=== PATIENT | female | born 1955 | race Caucasian/White ===

== ENCOUNTER 2020-03-23 07:20 | Outpatient (CLI) | payer OTHER, SELFPAY ==
--- NOTE | 2020-03-23 07:26 | MM_ITS ---
WS: [id number] BILATERAL SCREENING DIGITAL MAMMOGRAM WITH CAD HISTORY: SCREENING COMPARISON: 12/31/2018 and 12/18/2017 Bilateral CC and MLO views submitted. Computer aided detection analyzed. Breast composition: The breasts are heterogeneously dense, which may obscure small masses. No suspici ous masses, microcalcifications or architectural distortion. MM/[place] [id number] IMPRESSION: BI-RADS: 1-Negative FOLLOW UP: 1 Year Follow-up
== END 2020-03-23 07:21 | disposition home or self-care (01) ==
LOC: RADSHAW 07:24
PROVIDERS: PCP Family Medicine; Visit Provider Family Medicine
DX: Z12.31 Encounter for screening mammogram for malignant neoplasm of breast (principal)
CPT/HCPCS: 77067

== ENCOUNTER 2020-04-09 13:17 | Emergency (ER) | payer OTHER, SELFPAY ==
[2020-04-09 13:20] VITALS: BP 183/102; PULSE 95; RESP 17; TEMP 36.9; O2SAT 99; BMI 39.0
--- NOTE | 2020-04-09 13:26 | CT_ITS ---
WS: [id number] CT CHEST WITH INTRAVENOUS CONTRAST HISTORY: TRAUMA TECHNIQUE: Contiguous 5 mm axial imaging performed on the thorax. Coronal and sagittal reformats are submitted. All CT scans at [facility] use at least one of these dose optimization techniq ues: automated exposure control; mA and/or kV adjustment per patient size (includes targeted exams wh ere dose is matched to clinical indication); or iterative reconstruction. CONTRAST: Omnipaque 300; 75 mL IV. DLP: 1571.88 mGy.cm COMPARISON: None available. Lungs and central airway: Hyperinflated lungs with changes of emphysema. No consolidation or mass. Pleura: Normal. No pleural effusion. Heart and pericardium: Heart is enlarged. Mediastinum and merari: There is some very mild stranding in the anterior mediastinal fat. No adenopath y. Vessels: Atherosclerosis of aorta. No aneurysm. Chest wall and lower neck: There is a large amount of soft tissue infiltration throughout the soft ti ssues of the LEFT neck which crosses posterior to the trachea. Very slight shift of midline structure s to the RIGHT but no compromise of the airway at this time. Upper abdomen: Prior cholecystectomy. Solid enhancing mass exophytic from the mid lateral LEFT kidney measures 2.0 x 2.2 cm. There is a small amount of fat. Benign cyst RIGHT kidney. Osseous structures: No destructive process. Increase in thoracic kyphosis. Notified Cinthia Reid at 04/09/2020 3:[address]/CT chest w con* [id number] IMPRESSION: 1. Infiltrating soft tissue throughout the inferior LEFT neck with extension i nto the upper mediastinum. Infection and bleeding within the differential. At t his time no compromise of the airway. 2. Chronic emphysema. 3. Enhancing LEFT renal mass measuring 2.0 x 2.2 cm. There is a small amount o f macroscopic fat. Renal cell neoplasm is likely. Dedicated renal mass CT roby col is recommended. 4. Hiatal hernia.
--- NOTE | 2020-04-09 13:26 | CT_ITS ---
WS: [id number] CT NECK WITH CONTRAST HISTORY: Ecchymosis TECHNIQUE: Contiguous 5 mm axial images are performed through the neck with intravenous contrast. Sag ittal and coronal reformats are also submitted. All CT scans at [facility] use at least o ne of these dose optimization techniques: automated exposure control; mA and/or kV adjustment per pat ient size (includes targeted exams where dose is matched to clinical indication); or iterative recons truction. CONTRAST: CONTRAST: Omnipaque 300; 75 mL IV. DLP: 633.15 mGy.cm COMPARISON: None available. Infiltrating soft tissue process in the LEFT neck. Seen on the postcontrast images there is a very hy pervascular mass measuring 1.7 x 1.4 cm closely associated with the LEFT thyroid. This is slightly ex ophytic from the anterior thyroid and could be a hypervascular thyroid nodule. Active arterial extrav asation secondary to a neoplasm should be considered as a possible etiology. There is an additional a cesar of decreased attenuation posterior to this hypervascular mass in the LEFT neck. There is oblitera tion of fat planes. There is slight mass effect upon the LEFT larynx and obliteration of the LEFT voc al cord. Increased soft tissue surrounding the LEFT hyoid and crossing posterior to the larynx. Soft tissue infiltration continues inferiorly surrounding the substernal portion of the LEFT thyroid. Cardona tid artery is intact. No fractures are identified. The hyoid bone and thyroid cartilage are intact. Visualized portions of the skull base demonstrate no abnormalities. Orbits and globes are within norm al limits. No soft tissue masses. Visualized paranasal sinuses and mastoid air cells are normal. Notified Cinthia Reid at 04/09/2020 3:[address]/CT neck w con* [id number] IMPRESSION: 1. Infiltrating soft tissue process in the LEFT neck with mild mass effect upo n the LEFT larynx and obliteration of the LEFT vocal cord. Differential include s hemorrhage with hematoma and possible active extravasation versus an infectio n. 2. Hypervascular soft tissue nodule anterior to the LEFT thyroid measures 1.7 x 1.4 cm. This may be a hypervascular thyroid nodule which is causing active bl eeding or focal area of active bleeding with adjacent surrounding hematoma. 3. Mild mass effect upon the larynx. Patient is at risk for compromise of the airway if active bleeding continues or progression of infection.
[2020-04-09 13:52] LABS: Basophils % 0.7 %; Eosinophils # 0.1 10^3/uL (0.0-0.8); Eosinophils % 1.9 %; Hematocrit 39.4 % (37.0-47.0); Hemoglobin 12.7 g/dL (11.5-15.3); Lymphocytes # 1.4 10^3/uL (0.8-4.8); Lymphocytes % 23.5 %; Mean Corpuscular HGB Conc 32.2 g/dL (30.0-36.0); Mean Corpuscular Hemoglobin 28.2 pg (28.0-34.0); Mean Corpuscular Volume 87.6 fL (81-99); Mean Platelet Volume 11.2 fL (7.4-10.4); Monocytes # 0.5 10^3/uL (0.2-0.9); Neutrophils # 3.8 10^3/uL (1.8-7.7); Neutrophils % 64.6 %; Nucleated Red Blood Cells % 0 %; Platelet Count 248 10^3/cmm (130-400); Red Cell Distribution Width 12.4 % (12.1-15.1); White Blood Count 5.9 10^3/uL (4.0-10.0)
[2020-04-09 13:59] LABS: INR 0.93 (0.8-1.2)
[2020-04-09 14:00] LABS: Partial Thromboplastin Time 29.6 SECONDS (23.9-36.7)
[2020-04-09 14:07] LABS: Alanine Aminotransferase 14 U/L (0-33); Albumin Level 4.7 g/dL (3.5-5.2); Alkaline Phosphatase 84 IU/L (35-105); Anion Gap 14.5 (5-19); Aspartate Amino Transferase 18 U/L (0-32); Blood Urea Nitrogen 8 mg/dL (8-23); Calcium 10.3 mg/dL (8.5-10.5); Carbon Dioxide 28 mmol/L (22-29); Chloride 103 mmol/L (98-107); Globulin 2.4 g/dL (1.3-4.6); Glomerular Filtration Rate 84.2 mL/min (90-130); Glucose 96 mg/dL (65-115); Osmolality Calculated 290 mOsm/kg (285-295); Potassium 3.5 mmol/L (3.5-5.1); Sodium 142 mmol/L (136-145); Total Bilirubin 0.5 mg/dL (0.15-1.2); Total Protein 7.1 g/dL (6.6-8.7)
[2020-04-09] MEDS: iodixanol 320 mg/mL 100mL Btl IV ×2 (14:11→14:14)
[2020-04-09 14:48] LABS: Add Urine Culture? No; Bacteria Urine TRACE; Bilirubin Urine Neg (NEGATIVE); Blood Urine Neg (Negative); Glucose Urine UA Norm (Normal); Ketones Urine Negative (Negative); Leukocyte Esterase Urine Negative (Negative); Nitrate Urine Negative (Negative); Protein Urine Neg (Negative); Squamous Epithelial Cell Urine 0-4 (0-5); Urine Appearance Clear (CLEAR); Urine Color Yellow (Yellow); Urobilinogen Urine Neg (Negative); WBC Urine 0-4 /hpf (0-5); pH Urine 6 (5-7)
[2020-04-09] MEDS: sodium chloride 0.9% 1,000 ML 100 ML IV (14:58)
--- NOTE | 2020-04-09 15:10 | ED_ITS ---
HPI - General Adult General: Chief complaint: General Medical Stated complaint: Bruising on neck Time Seen by Provider: 04/09/20 13:24 Source: patient Mode of arrival: ambulatory Limitations: no limitations History of Present Illness: HPI narrative: Annie is a very nice 64-year-old female who comes in complaining of a sore throat that started last . She was tested for strep on Thursday at the urgent care but found to be negative. She is not had any fevers or chills. Thursday she noticed some bruising on the lower part of her neck that has spread now to the upper part of her chest. She denies any trauma or injury to the area. She denies any fevers or problems swallowing or speaking other than she knows that she is hoarse. She denies being on blood thinners and does not take any antiplatelet agents. Patient denies any other complaints or concerns. Patient states that she is hoarse but denies any pain with swallowing. The symptoms have been slowly progressive and not rapid. She is unaware of any aggravating or alleviating factors. Associated symptoms: Deny chest pain, confusion, diaphoresis, dyspnea, headache(s), malaise, nausea, rash, palpitations, syncope or vomiting Review of Systems Const: Denies: fever(s), chills, body aches, fatigue, malaise or diaphoresis Eyes: Denies: change in vision, blurry vision, blind spots, photophobia, eye discharge or eye redness ENMT: Reports: throat pain and hoarseness; Denies: swelling of lips/tongue, oral sores, ear or mastoid pain, ear discharge, change in hearing or nasal discharge Card: Denies: chest pain, palpitations, irregular heart rhythm, edema, l ightheadedness, syncope, pre-syncope, dyspnea on exertion or orthopnea Resp: Denies: dyspnea, productive cough, non-productive cough, wheezing, h emoptysis or chest congestion GI: Denies: abdominal pain, nausea, vomiting, hematemesis, coffee ground emesis, heartburn, diarrhea, constipation, GI cramping, hematochezia or melena : Denies: flank pain, dysuria, urinary frequency, urinary urgency or hematuria Musc: Denies: neck pain, back pain, extremity pain, extremity swelling, joint pain, joint swelling, joint redness, joint warmth or joint stiffness Skin/Breast: Denies: rash, pruritus, erythema, skin tenderness or jaundice Neuro: Denies: headache(s), numbness in extremities, weakness in extremities, sensory changes, lack of coordination, difficulty walking, dizziness, vertigo, confusion, Slurred speech present or seizure-like activity All/Imm: Denies: urticaria, throat swelling, tongue swelling, facial swelling or acute wheezing PFSH ED PFSH: Medical History Degenerative arthritis of knee GERD (gastroesophageal reflux disease) Hypertension Surgical History History of arthroscopic knee surgery Social History Smoking and tobacco status: former smoker Alcohol intake: never Physical Exam Const: COMMON NORMALS: no acute distress, patient oriented x3, no limitations, healthy appearing and well nourished GENERAL APPEARANCE: cooperative, well kempt and well developed HENMT: COMMON NORMALS: normocephalic, atraumatic, external ears normal, EAC's normal and Normal external nose present HEAD & SCALP: normal to inspection, normocephalic and atraumatic FACE & SINUS: normal facial exam and face symmetric NOSE: Normal external nose present and Normal nares present EXTERNAL EAR: Yes external ears normal EXTERNAL AUDITORY CANAL: EAC's normal MOUTH: Normal oral and palatal mucosa present, lip normal and tongue normal THROAT: posterior oropharynx normal Eye: COMMON NORMALS: Equal, round and reactive pupils present and conjunctivae normal GENERAL EYE: appearance normal, both eyes and all related structures ALIGNMENT: Yes alignment normal PERIORBITAL: periorbital findings normal EYELID: eyelids normal CONJUNCTIVA: Yes conjunctivae normal SCLERA: sclerae normal PUPIL: Yes Equal, round and reactive pupils present Neck/C-Spine: COMMON NORMALS: full ROM, no lymphadenopathy, supple, no meningeal signs and no JVD GENERAL: Yes normal visual inspection and Yes trachea midline OTHER: Bleeding noted over the thyroid extending down inferiorly toward superior chest. Chest: COMMONS NORMALS: normal inspection of the chest and normal palpation of entire chest wall Resp: COMMON NORMALS: normal respiratory effort, No retractions and No use of accessory muscles EFFORT & INSPECTION: Yes able to speak in complete sentences and Yes symmetric chest movement AUSCULTATION: no crackles, no rales, no rhonchi and no wheezes Cardio: COMMON NORMALS: no JVD, regular rate, regular rhythm, S1 normal heart sound present and S2 normal heart sound present RATE: regular rate RHYTHM: regular rhythm HEART SOUNDS: S1 normal heart sound present, S2 normal heart sound present, no click, no gallops, no murmurs, no rubs and abnormal split S2 GI: COMMON NORMALS: Soft to palpation and No hepatosplenomegaly present PALPATION: Yes Soft to palpation, No Tenderness to palpation present (GI), No Guarding due to palpation present (GI), No Rigid due to palpation, Yes No hepatosplenomegaly present, No Hernia present, No Palpable mass present and No Pulsatile mass present : COMMON NORMALS: Yes no CVA tenderness BLADDER/KIDNEY EXAM: Yes no CVA tenderness EXTERNAL FEMALE EXAM: No Hernia present Back/Pelvis: COMMON NORMALS: no CVA tenderness, thoracic and lumbar spine normal to inspection, no thoracic nor lumbar tenderness and thoraco-lumbar ROM normal Extremity: COMMON NORMALS: normal to inspection, full ROM, capillary refill normal, no joint enlargement, no clubbing, cyanosis or edema and no calf tenderness Neuro: COMMON NORMALS: patient oriented x3, CN's II-XII intact bilaterally, moves all extremities, no focal motor deficits and no sensory deficits noted MENINGEAL SIGNS: Yes no meningeal signs SPEECH: speech normal Psych: COMMON NORMALS: mental status grossly normal, Normal thought process present, cooperative, normal affect, speech normal and activity/motor behavior normal APPEARANCE: Yes well kempt SPEECH: Yes normal speech THOUGHT PROCESS: Normal thought process present Skin: COMMON NORMALS: no rashes or lesions noted, turgor normal, no jaundice, no petechiae and no mottling GENERAL SKIN EXAM: no rashes or lesions noted and turgor normal Procedures Intubation Time out performed: Yes sedative: Etomidate Mg Given: 30 paralytic: Succinylcholine Mg Given: 135 Laryngoscope: fiber optic video scope ET Tube Size: 7.5 ET Tube Uncuffed: Yes Tube Secured Depth (cm): 22 Tube Secured Location: lips Tube Placement Confirmation: visualized tube passing through cords, equal breath sounds bilaterally, no breath sounds over epigastrium and confirmation by capnometry Patient Tolerated Procedure: well and no complications Intubation Complications: none Additional Comments: Chest x-ray confirmed good placement. Course Vital Signs: Vital signs: Vital Signs Temperature 98.5 F 04/09/20 13:20 Pulse Rate 101 H 04/09/20 16:03 Respiratory Rate 22 H 04/09/20 16:03 Blood Pressure 197/126 04/09/20 16:03 Pulse Oximetry 100 04/09/20 16:03 MDM - General Adult MDM Narrative: Medical decision making narrative: The patient had hoarseness here and after the description of her airway I was concerned about her developing airway occlusion. Dr. Zaidi after talking with her on the phone was very concerned about this possibility based upon her CT appearance. She states there was airway involvement and she felt it would be in the patient's best interest to protect her airway sooner rather than later. I felt this would be in the patient's best interest as she was going to be going by air ambulance and they do not have the ability to intervene in transfer/air. The airway was secured but there was a significant hematoma noted even to the left vocal cord along with all of the area surrounding mucosal and laryngeal tissue including some of the epiglottis. Juan M Teixeira had been contacted previously and the patient was accepted by Dr. Escobar, he was also updated about the patient's successful tube placement. Lab Data: Attestation: I reviewed the patient's lab results. Labs: Lab Results 04/09/20 04/09/20 04/09/20 Range/Units 13:44 13:44 13:44 WBC 5.9 (4.0-10.0) 10^3/ uL RBC 4.50 (4.1-5.3) 10^6/u L Hgb 12.7 (11.5-15.3) g/dL Hct 39.4 (37.0-47.0) % MCV 87.6 (81-99) fL MCH 28.2 (28.0-34.0) pg MCHC 32.2 (30.0-36.0) g/dL RDW 12.4 (12.1-15.1) % Plt Count 248 (130-400) 10^3/c mm MPV 11.2 H (7.4-10.4) fL Neut % (Auto) 64.6 % Lymph % (Auto) 23.5 % Evans % (Auto) 9.0 % Eos % (Auto) 1.9 % Baso % (Auto) 0.7 % Neut # (Auto) 3.8 (1.8-7.7) 10^3/u L Lymph # (Auto) 1.4 (0.8-4.8) 10^3/u L Evans # (Auto) 0.5 (0.2-0.9) 10^3/u L Eos # (Auto) 0.1 (0.0-0.8) 10^3/u L Baso # (Auto) 0.0 (0.0-0.1) 10^3/u L Nucleated RBC % (a uto) 0 % Nucleated RBCs # 0.0 /100WBC PT 12.70 (10.5-13.3) SECO NDS INR 0.93 (0.8-1.2) APTT 29.6 (23.9-36.7) SECO NDS Sodium 142 (136-145) mmol/L Potassium 3.5 (3.5-5.1) mmol/L Chloride 103 (98-107) mmol/L Carbon Dioxide 28 (22-29) mmol/L Anion Gap 14.5 (5-19) BUN 8 (8-23) mg/dL Creatinine 0.7 (0.5-0.9) mg/dL GFR Calculation 84.2 L (90-130) mL/min Glucose 96 (65-115) mg/dL Calculated Osmolal ity 290 (285-295) mOsm/k g Calcium 10.3 (8.5-10.5) mg/dL Total Bilirubin 0.5 (0.15-1.2) mg/dL AST 18 (0-32) U/L ALT 14 (0-33) U/L Alkaline Phosphata se 84 (35-105) IU/L Total Protein 7.1 (6.6-8.7) g/dL Albumin 4.7 (3.5-5.2) g/dL Globulin 2.4 (1.3-4.6) g/dL Urine Color (Yellow) Urine Appearance (CLEAR) Urine pH (5-7) Ur Specific Gravit y (1.005-1.030) Urine Protein (Negative) Urine Glucose (UA) (Normal) Urine Ketones (Negative) Urine Blood (Negative) Urine Nitrate (Negative) Urine Bilirubin (NEGATIVE) Urine Urobilinogen (Negative) mg/dL Ur Leukocyte Katia ase (Negative) Urine RBC (0-2) /hpf Urine WBC (0-5) /hpf Ur Squamous Epith Cells (0-5) Urine Bacteria (NONE) 04/09/20 Range/Units 14:32 WBC (4.0-10.0) 10^3/ uL RBC (4.1-5.3) 10^6/u L Hgb (11.5-15.3) g/dL Hct (37.0-47.0) % MCV (81-99) fL MCH (28.0-34.0) pg MCHC (30.0-36.0) g/dL RDW (12.1-15.1) % Plt Count (130-400) 10^3/c mm MPV (7.4-10.4) fL Neut % (Auto) % Lymph % (Auto) % Evans % (Auto) % Eos % (Auto) % Baso % (Auto) % Neut # (Auto) (1.8-7.7) 10^3/u L Lymph # (Auto) (0.8-4.8) 10^3/u L Evans # (Auto) (0.2-0.9) 10^3/u L Eos # (Auto) (0.0-0.8) 10^3/u L Baso # (Auto) (0.0-0.1) 10^3/u L Nucleated RBC % (a uto) % Nucleated RBCs # /100WBC PT (10.5-13.3) SECO NDS INR (0.8-1.2) APTT (23.9-36.7) SECO NDS Sodium (136-145) mmol/L Potassium (3.5-5.1) mmol/L Chloride (98-107) mmol/L Carbon Dioxide (22-29) mmol/L Anion Gap (5-19) BUN (8-23) mg/dL Creatinine (0.5-0.9) mg/dL GFR Calculation (90-130) mL/min Glucose (65-115) mg/dL Calculated Osmolal ity (285-295) mOsm/k g Calcium (8.5-10.5) mg/dL Total Bilirubin (0.15-1.2) mg/dL AST (0-32) U/L ALT (0-33) U/L Alkaline Phosphata se (35-105) IU/L Total Protein (6.6-8.7) g/dL Albumin (3.5-5.2) g/dL Globulin (1.3-4.6) g/dL Urine Color Yellow (Yellow) Urine Appearance Clear (CLEAR) Urine pH 6 (5-7) Ur Specific Gravit y 1.010 (1.005-1.030) Urine Protein Neg (Negative) Urine Glucose (UA) Norm (Normal) Urine Ketones Negative (Negative) Urine Blood Neg (Negative) Urine Nitrate Negative (Negative) Urine Bilirubin Neg (NEGATIVE) Urine Urobilinogen Neg (Negative) mg/dL Ur Leukocyte Katia ase Negative (Negative) Urine RBC None (0-2) /hpf Urine WBC 0-4 H (0-5) /hpf Ur Squamous Epith Cells 0-4 H (0-5) Urine Bacteria Trace (NONE) Imaging Data^: CT Soft Tissue Neck: Radiologist's impression: [place] [address] CT Scan Report Signed Patient: Annie Chawla Unit #: [id number] : 1955 Age/Sex: 64 / F ADM Date: 04/09/20 Loc: ER Room/Bed: Attending Dr: Ordering Provider/Ordering MD: Cinthia Reid DO Date of Service: 04/09/20 Procedure(s): CT neck w con* [id number] Accession Number(s): [id number] Report Number: [id number] WS: [id number] CT NECK WITH CONTRAST HISTORY: Ecchymosis TECHNIQUE: Contiguous 5 mm axial images are performed through the neck with intravenous contrast. Sagittal and coronal reformats are also submitted. All CT scans at [facility] use at least one of these dose optimization techniques: automated exposure control; mA and/or kV adjustment per patient size (includes targeted exams where dose is matched to clinical indication); or iterative reconstruction. CONTRAST: CONTRAST: Omnipaque 300; 75 mL IV. DLP: 633.15 mGy.cm COMPARISON: None available. Infiltrating soft tissue process in the LEFT neck. Seen on the postcontrast images there is a very hypervascular mass measuring 1.7 x 1.4 cm closely associated with the LEFT thyroid. This is slightly exophytic from the anterior thyroid and could be a hypervascular thyroid nodule. Active arterial extravasation secondary to a neoplasm should be considered as a possible etiology. There is an additional area of decreased attenuation posterior to this hypervascular mass in the LEFT neck. There is obliteration of fat planes. There is slight mass effect upon the LEFT larynx and obliteration of the LEFT vocal cord. Increased soft tissue surrounding the LEFT hyoid and crossing posterior to the larynx. Soft tissue infiltration continues inferiorly surrounding the substernal portion of the LEFT thyroid. Carotid artery is intact. No fractures are identified. The hyoid bone and thyroid cartilage are intact. Visualized portions of the skull base demonstrate no abnormalities. Orbits and globes are within normal limits. No soft tissue masses. Visualized paranasal sinuses and mastoid air cells are normal. Notified Cinthia Reid at 04/09/2020 3:[address]/CT neck w con* [id number] IMPRESSION: 1. Infiltrating soft tissue process in the LEFT neck with mild mass effect upon the LEFT larynx and obliteration of the LEFT vocal cord. Differential includes hemorrhage with hematoma and possible active extravasation versus an infection. 2. Hypervascular soft tissue nodule anterior to the LEFT thyroid measures 1.7 x 1.4 cm. This may be a hypervascular thyroid nodule which is causing active bleeding or focal area of active bleeding with adjacent surrounding hematoma. 3. Mild mass effect upon the larynx. Patient is at risk for compromise of the airway if active bleeding continues or progression of infection. Dictated By: Laura Zaidi DO Signed By: Laura Zaidi DO Signed Date/Time: 04/09/20 1522 DD/ 1511 CT Chest: Radiologist's impression: [address] [place] [address] CT Scan Report Signed Patient: Annie Chawla Unit #: [id number] : 1955 Age/Sex: 64 / F ADM Date: 04/09/20 Loc: ER Room/Bed: Attending Dr: Ordering Provider/Ordering MD: Cinthia Reid DO Date of Service: 04/09/20 Procedure(s): CT chest w con* [id number] Accession Number(s): [id number] Report Number: [id number] WS: [id number] CT CHEST WITH INTRAVENOUS CONTRAST HISTORY: TRAUMA TECHNIQUE: Contiguous 5 mm axial imaging performed on the thorax. Coronal and sagittal reformats are submitted. All CT scans at [facility] use at least one of these dose optimization techniques: automated exposure control; mA and/or kV adjustment per patient size (includes targeted exams where dose is matched to clinical indication); or iterative reconstruction. CONTRAST: Omnipaque 300; 75 mL IV. DLP: 1571.88 mGy.cm COMPARISON: None available. Lungs and central airway: Hyperinflated lungs with changes of emphysema. No consolidation or mass. Pleura: Normal. No pleural effusion. Heart and pericardium: Heart is enlarged. Mediastinum and merari: There is some very mild stranding in the anterior mediastinal fat. No adenopathy. Vessels: Atherosclerosis of aorta. No aneurysm. Chest wall and lower neck: There is a large amount of soft tissue infiltration throughout the soft tissues of the LEFT neck which crosses posterior to the trachea. Very slight shift of midline structures to the RIGHT but no compromise of the airway at this time. Upper abdomen: Prior cholecystectomy. Solid enhancing mass exophytic from the mid lateral LEFT kidney measures 2.0 x 2.2 cm. There is a small amount of fat. Benign cyst RIGHT kidney. Osseous structures: No destructive process. Increase in thoracic kyphosis. Notified Cinthia Reid at 04/09/2020 3:[address]/CT chest w con* [id number] IMPRESSION: 1. Infiltrating soft tissue throughout the inferior LEFT neck with extension into the upper mediastinum. Infection and bleeding within the differential. At this time no compromise of the airway. 2. Chronic emphysema. 3. Enhancing LEFT renal mass measuring 2.0 x 2.2 cm. There is a small amount of macroscopic fat. Renal cell neoplasm is likely. Dedicated renal mass CT protocol is recommended. 4. Hiatal hernia. Dictated By: Laura Zaidi DO Signed By: Laura Zaidi DO Signed Date/Time: 04/09/20 1511 DD/ 1440 Discharge Plan Discharge Patient Disposition: Xfer Short-Term Hosp Clinical Impression: Hemorrhage of thyroid Condition: Stable Referrals: Elsy Alcantara MD [Primary Care Provider] - Discharge Date/Time: 04/09/20 16:15 Coding Level of Care Code ED [facility]ing[employer] Keeper for Chg Fwd Exam Comprehensive
--- NOTE | 2020-04-09 15:39 | XRR_ITS ---
PROCEDURE INFORMATION: Exam: XR Chest, 1 View Exam date and time: 04/09/2020 3:39 PM Age: 64 years old Clinical indication: Device placement; Other: Post intubation TECHNIQUE: Imaging protocol: XR of the chest Views: 1 view. COMPARISON: No relevant prior studies available. FINDINGS: Lungs: Low lung volumes seen. The lungs are otherwise clear Pleural space: Unremarkable. No pleural effusion. No pneumothorax. Heart/Mediastinum: Unremarkable. No cardiomegaly. Bones/joints: Unremarkable. Endotracheal tube is in place the tip is above the franki XR/XR chest 1V portable [id number] IMPRESSION: Endotracheal tube is in good position. Low lung volumes Otherwise No acute findings.
[2020-04-09] MEDS: fentaNYL 50 mcg/mL INJ 2mL 100 MCG IVP (15:49)
[2020-04-09] MEDS: LORazepam 2 mg/mL INJ 1 mL IVP (15:51)
[2020-04-09] MEDS: succinylcholine 20 mg/mL SDV 10mL 135 MG IVP (15:53)
[2020-04-09] MEDS: propofol 1,000 MG/100 ML INJ 13.6 MG IV (15:56)
[2020-04-09 16:03] VITALS: BP 197/126; PULSE 101; RESP 22; O2SAT 100
== END 2020-04-09 16:15 | disposition short-term general hospital (02) ==
PROVIDERS: Emergency Provider Emergency Medicine; PCP Family Medicine
DX: E07.89 Other specified disorders of thyroid (principal); I10 Essential (primary) hypertension; Z87.891 Personal history of nicotine dependence
CPT/HCPCS: 12345; 31500; 36415; 51702; 70491; 71045; 71260; 80053; 81001; 85025; 85610; 85730; 87040; 96360; 96361; 96365; 96367; 96375; 99283; 99291; J0330; J2060; J2704; J3010; J3490; J7030; Q9967

== ENCOUNTER 2020-07-03 15:46 | Outpatient (CLI) | payer MEDICARE, OTHER, SELFPAY ==
--- NOTE | 2020-07-03 15:58 | XR_ITS ---
WS: [id number] SCREENING DEXA SCAN [employer] CLINICAL INFORMATION: ASYMTOMATIC POSTMENOPAUSAL STATE COMPARISON: None. FINDINGS: The L1-L4 bone mineral density measures 1.233 g/cm2. This corresponds to a T score score of 0.4 and Z score of 1.4. Left femoral neck bone mineral density measures 0.940 g/cm2. This corresponds to a T score of -0.5 an d Z score of 0.2. Right femoral neck bone mineral density measures 0.940 g/cm2. This corresponds to a T score -0.5of an d Z score of 0.2. Mean femoral neck bone mineral density measures 0.940 g/cm2. This corresponds to a T score of -0.5 an d Z score of 0.2. XR/XR DEXA axial skeleton* [id number] IMPRESSION: Osteopenia femoral necks. Normal bone mineralization lumbar spine. Patient's FRAX calculated 10 year probability for major osteoporotic fracture i s 8.7 % and osteoporotic hip fracture is 1.0%.
== END 2020-07-03 15:47 | disposition home or self-care (01) ==
LOC: RADWPI 15:56
PROVIDERS: PCP Family Medicine; Visit Provider Family Medicine
DX: Z78.0 Asymptomatic menopausal state (principal); M85.869 Other specified disorders of bone density and structure, unspecified lower leg
CPT/HCPCS: 77080

== ENCOUNTER 2021-03-26 08:16 | Outpatient (CLI) | payer MEDICARE, OTHER, SELFPAY ==
--- NOTE | 2021-03-26 08:41 | MM_ITS ---
WS: [id number] BILATERAL DIGITAL SCREENING MAMMOGRAPHY WITH CAD CLINICAL INFORMATION: SCREENING HISTORY: Screening mammogram. No current complaints. COMPARISON: March 23, 2020 and TECHNIQUE: Bilateral CC and MLO views. FINDINGS: The breasts are composed of heterogeneous fibroglandular density tissue, which can limit the detectio n of small underlying mass lesions. Vascular calcification. No suspicious mass, asymmetry, calcificat ions, or architectural distortion. No evidence of malignancy. MM/[place] [id number] IMPRESSION: BI-RADS: 2-Benign FOLLOW UP: 1 Year Follow-up Recommend return to annual screening mammography.
== END 2021-03-26 08:17 | disposition home or self-care (01) ==
PROVIDERS: PCP Family Medicine; Visit Provider Family Medicine
DX: Z12.31 Encounter for screening mammogram for malignant neoplasm of breast (principal)
CPT/HCPCS: 77067

== ENCOUNTER 2021-04-20 12:27 | Emergency (ER) | payer MEDICARE, OTHER, SELFPAY ==
[2021-04-20 12:49] VITALS: BP 173/110; PULSE 94; RESP 18; TEMP 36.8; O2SAT 93; BMI 36.7
--- NOTE | 2021-04-20 12:59 | XRR_ITS ---
PROCEDURE INFORMATION: Exam: XR Abdomen Exam date and time: 04/20/2021 12:59 PM Age: 65 years old Clinical indication: Abdominal pain. Prior cholecystectomy. TECHNIQUE: Imaging protocol: XR of the abdomen. Views: Frontal supine view of the abdomen. 1 View. COMPARISON: CR XR chest 1V portable [id number] 04/09/2020 3:48 PM FINDINGS: Cholecystectomy clips are noted in the right upper quadrant. There is moderate stool in the colon; query constipation. Nonobstructive bowel gas pattern. No gross free air. XR/XR KUB portable [id number] IMPRESSION: Moderate stool in the colon; query constipation.
[2021-04-20 13:25] VITALS: BP 146/94; PULSE 82; RESP 16; O2SAT 97
--- NOTE | 2021-04-20 13:26 | PC.NURSE ---
patient stated felt better at this time. denied any nausea, c/o abdominal pain 2/10 at this time. no acute distress noted.
--- NOTE | 2021-04-20 13:38 | W.ED.ABDPA2 ---
HPI - Abdominal Pain General: Chief Complaint: Abdominal Pain Stated Complaint: LOWER ABD PAINS Time Seen by Provider: 04/20/21 12:59 Source: patient Limitations: no limitations History of Present Illness: HPI narrative: Patient with epigastric and mid abdominal pain after attempting to have a bowel movement. She states she took Bentyl pill prior to arrival and the pain is now gone. She states she did have some mild constipation with hard stool this morning. She states she does have hemorrhoids and noticed bright red blood on the stool this morning. This blood was mild. She states this happens with her hemorrhoids. She denies any nausea vomiting fever or chills. She denies any dysuria or urinary symptoms. No chest pain or shortness of breath. Possible history of total hysterectomy, cholecystectomy. She still has her appendix. Past medical history includes essential hypertension, GERD, hypercholesterolemia, thyroid nodules. MD elicited complaint: abdominal pain Pertinent past history: constipation Onset (ago): hour(s) (1) Pain Consistency: now resolved Location: Epigastric (Mid abdominal pain.) Severity: moderate (Nontender now.) Quality: cramping and sharp Radiation: none Migration to: no migration Exacerbating factors: bowel movement Relieving factors: medication (Bentyl) Associated Symptoms: Reports constipation, GI cramping and other (Minimal amount of bright red blood on the stool after the bowel movement. ); Denies anorexia, belching, bloating, chills, diarrhea, dyspepsia, dysuria, melena, nausea and vomiting Review of Systems Const: Denies: chills Eyes: Denies: change in vision ENMT: Denies: throat pain Card: Denies: chest pain or palpitations Resp: Denies: dyspnea or wheezing GI: Reports: abdominal pain (Patient has hemorrhoids.), constipation, GI cramping and other (Minimal amount of bright red blood on the stool after the bowel movement. ); Denies: nausea, vomiting, diarrhea, bloating, belching or melena : Denies: dysuria Musc: Denies: neck pain or back pain Skin/Breast: Denies: rash or pruritus Neuro: Denies: headache(s) or numbness in extremities Psych: Denies: anxiety Moreno/Lymph: Denies: enlarged lymph nodes [facility] ED PFSH: Medical History (Updated 04/20/21 @ 14:44 by Bereket Castillo MD) Degenerative arthritis of knee GERD (gastroesophageal reflux disease) Hypertension Surgical History History of arthroscopic knee surgery Social History Smoking and tobacco status: former smoker Alcohol intake: never Physical Exam Const: COMMON NORMALS: no acute distress, patient oriented x3, no limitations and well nourished GENERAL APPEARANCE: cooperative and comfortable HENMT: COMMON NORMALS: normocephalic and atraumatic HEAD & SCALP: normocephalic and atraumatic FACE & SINUS: normal facial exam Eye: COMMON NORMALS: EOMs intact bilaterally Neck/C-Spine: COMMON NORMALS: full ROM, no lymphadenopathy, supple and no meningeal signs GENERAL: Yes normal visual inspection Lymph: LYMPHATIC: no lymphadenopathy noted Chest: COMMONS NORMALS: normal inspection of the chest and normal palpation of entire chest wall CHEST: No Ecchymosis present and No rash Resp: COMMON NORMALS: normal respiratory effort, No retractions and clear to auscultation bilaterally EFFORT & INSPECTION: No respiratory distress AUSCULTATION: clear to auscultation bilaterally Cardio: COMMON NORMALS: regular rate, regular rhythm and Peripheral pulses 2+ throughout JUGULAR VENOUS DISTENTION: no JVD RATE: regular rate RHYTHM: regular rhythm PERIPHERAL PULSES: Peripheral pulses 2+ throughout GI: COMMON NORMALS: Normal to inspection, nondistended, normoactive bowel sounds present, Soft to palpation, non-tender, No hepatosplenomegaly present, no masses and no bruits PALPATION: Yes Soft to palpation and Yes No hepatosplenomegaly present : COMMON NORMALS: Yes no CVA tenderness BLADDER/KIDNEY EXAM: Yes no CVA tenderness Back/Pelvis: COMMON NORMALS: no CVA tenderness Extremity: COMMON NORMALS: normal to inspection, full ROM and capillary refill normal Neuro: COMMON NORMALS: patient oriented x3, CN's II-XII intact bilaterally, no focal motor deficits and no sensory deficits noted MENINGEAL SIGNS: Yes no meningeal signs Psych: COMMON NORMALS: mental status grossly normal and Normal thought process present THOUGHT PROCESS: Normal thought process present Skin: COMMON NORMALS: no rashes or lesions noted and no wounds GENERAL SKIN EXAM: no rashes or lesions noted Course Vital Signs: Vital signs: Vital Signs Temperature 98.2 F 04/20/21 12:49 Pulse Rate 82 04/20/21 13:25 Respiratory Rate 16 04/20/21 13:25 Blood Pressure 146/94 04/20/21 13:25 Pulse Oximetry 97 04/20/21 13:25 MDM - Abdominal Pain MDM Narrative: Medical decision making narrative: 1430: Patient feeling much better. No symptoms now. Will treat for urinary tract infection. Lab Data: Attestation: I reviewed the patient's lab results. Labs: Lab Results 04/20/21 04/20/21 04/20/21 Range/Units 13:30 13:30 13:42 WBC 6.2 (4.0-10.0) 10^3/ uL RBC 4.23 (4.1-5.3) 10^6/u L Hgb 12.4 (11.5-15.3) g/dL Hct 37.4 (37.0-47.0) % MCV 88.4 (81-99) fL MCH 29.3 (28.0-34.0) pg MCHC 33.2 (30.0-36.0) g/dL RDW 12.4 (12.1-15.1) % Plt Count 203 (130-400) 10^3/c mm MPV 11.7 H (7.4-10.4) fL Neut % (Auto) 68.1 % Lymph % (Auto) 19.6 % [place] % (Auto) 10.7 % Eos % (Auto) 0.0 % Baso % (Auto) 1.3 % Neut # (Auto) 4.19 (1.8-7.7) 10^3/u L Lymph # (Auto) 1.2 (0.8-4.8) 10^3/u L [place] # (Auto) 0.7 (0.2-0.9) 10^3/u L Eos # (Auto) 0.0 (0.0-0.8) 10^3/u L Baso # (Auto) 0.1 (0.0-0.1) 10^3/u L Nucleated RBC % (a uto) 0 % Nucleated RBCs # 0.0 /100WBC Sodium 136 (136-145) mmol/L Potassium 3.8 (3.5-5.1) mmol/L Chloride 100 (98-107) mmol/L Carbon Dioxide 25 (22-29) mmol/L Anion Gap 14.8 (5-19) BUN 22 (8-23) mg/dL Creatinine 0.9 (0.5-0.9) mg/dL GFR Calculation 62.8 L (90-130) mL/min Glucose 110 (65-115) mg/dL Calculated Osmolal ity 286 (285-295) mOsm/k g Calcium 9.8 (8.5-10.5) mg/dL Total Bilirubin 0.3 (0.15-1.2) mg/dL AST 26 (0-32) U/L ALT 19 (0-33) U/L Alkaline Phosphata se 93 (35-105) IU/L Total Protein 6.7 (6.6-8.7) g/dL Albumin 4.2 (3.5-5.2) g/dL Globulin 2.5 (1.3-4.6) g/dL Lipase 57 (13-60) U/L Urine Color Yellow (Yellow) Urine Appearance Clear (CLEAR) Urine pH 5 (5-7) Ur Specific Gravit y 1.020 (1.005-1.030) Urine Protein Neg (Negative) Urine Glucose (UA) Norm (Normal) Urine Ketones Negative (Negative) Urine Blood 2+ H (Negative) Urine Nitrate Negative (Negative) Urine Bilirubin Neg (Negative) Urine Urobilinogen Norm (Negative) mg/dL Ur Leukocyte Katia ase Trace H (Negative) Urine RBC 5-10 H (0-2) /hpf Urine WBC 5-10 H (0-5) /hpf Ur Squamous Epith Cells 0-4 H (0-5) /hpf Amorphous Sediment Not Reportable Urine Bacteria 1+ H (NONE) /hpf Hyaline Casts 10-15 H /lpf Urine Mucus Trace /hpf Imaging Data ^: KUB: Attestation: I personally reviewed and interpreted this imaging study as follows: My impression: Unremarkable KUB. Discharge Plan Discharge Patient Disposition: Home Clinical Impression: Abdominal pain Qualifiers: Abdominal location: epigastric Qualified Code(s): R10.13 - Epigastric pain Constipation Qualifiers: Constipation type: unspecified constipation type Qualified Code(s): K59.00 - Constipation, unspecified Urinary tract infection Qualifiers: Urinary tract infection type: site unspecified Hematuria presence: without hematuria Qualified Code(s): N39.0 - Urinary tract infection, site not specified Condition: Stable Prescriptions: New cephalexin 500 mg capsule 500 mg PO QID 7 Days Qty: 28 RF: 0 No Action lovastatin 40 mg tablet 40 mg PO DAILY RF: 0 esomeprazole magnesium [Nexium] 20 mg capsule,delayed release(DR/EC) 40 mg PO DAILY RF: 0 lisinopril-hydrochlorothiazide 20-25 mg Tablet 1 tab PO DAILY RF: 0 dicyclomine 20 mg tablet 20 mg PO BID RF: 0 Glucosamine 1 tab PO DAILY RF: 0 Vitamin C 1 tab PO DAILY RF: 0 Vitamin D3 1 tab PO DAILY RF: 0 black cohosh 1 tab PO DAILY RF: 0 flaxseed oil 1 tab PO DAILY RF: 0 vitamin A 1 tab PO DAILY RF: 0 zinc 1 tab PO DAILY RF: 0 Discharge Orders: Discharge ED (Routine); Ordered 04/20/21 Ordered By: Bereket Castillo Referrals: Elsy Alcantara MD [Primary Care Provider] - Discharge Diet: Advance as tolerated Discharge Activity: Increase activity as tolerated Patient Instructions: Constipation (ED), Abdominal Pain (ED), Opioid Safety Activity Restrictions/Additional Instructions: Drink plenty water. Start cephalexin this evening. You have a mild urinary tract infection. Coding Level of Care Code ED Handle Sander Operator for Beatriz Fwd Exam Comprehensive
[2021-04-20 13:40] LABS: Basophils # 0.1 10^3/uL (0.0-0.1); Basophils % 1.3 %; Hematocrit 37.4 % (37.0-47.0); Hemoglobin 12.4 g/dL (11.5-15.3); Lymphocytes # 1.2 10^3/uL (0.8-4.8); Lymphocytes % 19.6 %; Mean Corpuscular HGB Conc 33.2 g/dL (30.0-36.0); Mean Corpuscular Hemoglobin 29.3 pg (28.0-34.0); Mean Corpuscular Volume 88.4 fL (81-99); Mean Platelet Volume 11.7 fL (7.4-10.4); Monocytes # 0.7 10^3/uL (0.2-0.9); Monocytes % 10.7 %; Neutrophils # 4.19 10^3/uL (1.8-7.7); Neutrophils % 68.1 %; Nucleated Red Blood Cells % 0 %; Platelet Count 203 10^3/cmm (130-400); Red Blood Count 4.23 10^6/uL (4.1-5.3); Red Cell Distribution Width 12.4 % (12.1-15.1); White Blood Count 6.2 10^3/uL (4.0-10.0)
[2021-04-20 13:59] LABS: Alanine Aminotransferase 19 U/L (0-33); Albumin Level 4.2 g/dL (3.5-5.2); Alkaline Phosphatase 93 IU/L (35-105); Blood Urea Nitrogen 22 mg/dL (8-23); Calcium 9.8 mg/dL (8.5-10.5); Carbon Dioxide 25 mmol/L (22-29); Chloride 100 mmol/L (98-107); Creatinine Clr Calc Pharmacy 60.4149; Globulin 2.5 g/dL (1.3-4.6); Glomerular Filtration Rate 62.8 mL/min (90-130); Glucose 110 mg/dL (65-115); Lipase 57 U/L (13-60); Osmolality Calculated 286 mOsm/kg (285-295); Sodium 136 mmol/L (136-145); Total Bilirubin 0.3 mg/dL (0.15-1.2); Total Protein 6.7 g/dL (6.6-8.7)
[2021-04-20 14:00] LABS: Anion Gap 14.8 (5-19); Aspartate Amino Transferase 26 U/L (0-32); Potassium 3.8 mmol/L (3.5-5.1)
[2021-04-20 14:03] LABS: Add Urine Microscopic? YES; Bilirubin Urine Neg (Negative); Blood Urine 2+ (Negative); Glucose Urine UA Norm (Normal); Ketones Urine Negative (Negative); Leukocyte Esterase Urine Trace (Negative); Nitrate Urine Negative (Negative); Protein Urine Neg (Negative); Urine Appearance Clear (CLEAR); Urine Color Yellow (Yellow); Urobilinogen Urine Norm (Negative); pH Urine 5 (5-7)
[2021-04-20 14:04] LABS: Add Urine Culture? No; Bacteria Urine 1+ /hpf; Mucus Urine TRACE /hpf; Squamous Epithelial Cell Urine 0-4 /hpf (0-5)
[2021-04-20] MEDS: cephALEXin 500 mg Capsule PO (14:58)
[2021-04-20 15:20] VITALS: BP 132/86; PULSE 64; RESP 16; O2SAT 98
== END 2021-04-20 15:21 | disposition home or self-care (01) ==
PROVIDERS: Emergency Provider Family Medicine; PCP Family Medicine
DX: R10.13 Epigastric pain (principal); K59.00 Constipation, unspecified; N39.0 Urinary tract infection, site not specified; I10 Essential (primary) hypertension; Z87.891 Personal history of nicotine dependence
CPT/HCPCS: 74018; 80053; 81001; 83690; 85025; 99283

== ENCOUNTER 2022-04-11 14:44 | Outpatient (CLI) | payer MEDICARE, OTHER, SELFPAY ==
--- NOTE | 2022-04-11 14:58 | MM_ITS ---
WS: [id number] SCREENING DIGITAL BREAST TOMOSYNTHESIS MAMMOGRAM WITH CAD HISTORY: SCREENING COMPARISON: 03/26/2021, 03/23/2020 Bilateral CC and MLO with tomosynthesis and synthetic mammography submitted. Computer aided detection analyzed. Breast composition: The breasts are extremely dense, which lowers the sensitivity of mammography. See n on the tomosynthesis is a 7 mm slightly lobulated mass in the inferior LEFT breast just medial to t he nipple. This may have been present on the prior studies but obscured by the dense fibroglandular t issue. MM/[place] [id number] IMPRESSION: BI-RADS: 0-Incomplete: Need additional imaging evaluation FOLLOW UP: Need Additional Imaging Recommendation: Limited LEFT breast ultrasound targeted in the anterior breast from 5-8 o'clock.
== END 2022-04-11 14:45 | disposition home or self-care (01) ==
LOC: RAD 14:46
PROVIDERS: PCP Family Medicine; Visit Provider Family Medicine
DX: Z12.31 Encounter for screening mammogram for malignant neoplasm of breast (principal)
CPT/HCPCS: 77063; 77067

== ENCOUNTER 2022-05-13 08:03 | Outpatient (CLI) | payer MEDICARE, OTHER, SELFPAY ==
--- NOTE | 2022-05-13 08:09 | US_ITS ---
WS: [id number] ULTRASOUND LEFT BREAST HISTORY: ABNORMAL MAMMOGRAM COMPARISON: 04/11/2022 mammogram TECHNIQUE: 2-D and Doppler. There is a hypoechoic nodule in the anterior LEFT breast, 1 cm from the nipple near 6:00. Breasts are very mobile and this could potentially represent the mammographic abnormality that was described ashely r 7:00. Low-attenuation nodule measures 8 x 3 x 5 mm. No increased vascularity. No additional abnorma lity. US/US breast LT limited* [id number] IMPRESSION: BI-RADS: 3-Probably Benign FOLLOW-UP: 6 Month Follow-up Recommend diagnostic LEFT mammogram and ultrasound follow-up in 6 months to doc ument stability.
== END 2022-05-13 08:04 | disposition home or self-care (01) ==
LOC: RAD 08:03
PROVIDERS: PCP Family Medicine; Visit Provider Family Medicine
DX: R92.8 Other abnormal and inconclusive findings on diagnostic imaging of breast (principal)
CPT/HCPCS: 76642

== ENCOUNTER 2022-08-08 15:01 | Outpatient (CLI) | payer MEDICARE, OTHER, SELFPAY ==
--- NOTE | 2022-08-08 15:11 | XR_ITS ---
WS: [id number] DEXA (DUAL ENERGY X-RAY ABSORPTIOMETRY) Bone mineral density was performed using a [employer] machine. HISTORY: ASYMPTOMATIC MENOPAUSAL STATE COMPARISON: 07/03/2020 Lumbar spine BMD (L1-L4): 1.193 g/cm2 T score: 0.1 Z score: 1.1 Total hip BMD: Left: 0.914 g/cm2. T score: -0.7 Z score: 0.1 Right: 0.949 g/cm2. T score: -0.5 Z score: 0.4 10 year probability of a major osteoporotic fracture is 8%. Compared to the prior study from 07/03/2020. Lumbar spine bone mineral density has decreased by 3.2%. Bilateral hips bone mineral density has decreased by 0.9%. XR/XR DEXA axial skeleton* [id number] IMPRESSION: NORMAL BONE MINERAL DENSITY based upon the WHO classification for females. Significant decrease in bone mineral density within the lumbar spine since the prior study.
== END 2022-08-08 15:02 | disposition home or self-care (01) ==
LOC: RAD 15:01
PROVIDERS: PCP Family Medicine; Visit Provider Family Medicine
DX: Z78.0 Asymptomatic menopausal state (principal)
CPT/HCPCS: 77080

== ENCOUNTER 2022-10-28 08:08 | Outpatient (CLI) | payer MEDICARE, OTHER, SELFPAY ==
--- NOTE | 2022-10-28 | US_ITS ---
LEFT DIAGNOSTIC DIGITAL TOMOSYNTHESIS MAMMOGRAPHY WITH CAD. LEFT breast ultrasound, limited HISTORY: 6 MO F/U COMPARISON: 04/11/2022, 03/26/2021, 04/23/2022 Technique: CC, MLO and ML views. Compression views LEFT CC and MLO. Breast composition: The breasts are heterogeneously dense, which may obscure small masses. Dense fibroglandular tissue in the middle and anterior breast obscuring detail and nodules. The pattern is very similar to prior studies. No distortion. LEFT breast ultrasound, limited. No interval change in the hypoechoic ovoid nodule measuring 8 x 3 x 5 mm in the LEFT breast at 6:00, 1 cm from the nipple. Benign in appearance. No additional abnormality noted in the subareolar region. IMPRESSION: BI-RADS: 3-Probably Benign FOLLOW UP: 6 Month Follow-up Patient to return in 6 months for annual bilateral mammogram. LEFT breast ultrasound should also be performed of the indeterminate but probably benign nodule at 6:00 LEFT breast. MTDD
--- NOTE | 2022-10-28 08:34 | MM_ITS ---
WS: [id number] LEFT DIAGNOSTIC DIGITAL TOMOSYNTHESIS MAMMOGRAPHY WITH CAD. LEFT breast ultrasound, limited HISTORY: 6 MO F/U COMPARISON: 04/11/2022, 03/26/2021, 04/23/2022 Technique: CC, MLO and ML views. Compression views LEFT CC and MLO. Breast composition: The breasts are heterogeneously dense, which may obscure small masses. Dense fib roglandular tissue in the middle and anterior breast obscuring detail and nodules. The pattern is charlie y similar to prior studies. No distortion. LEFT breast ultrasound, limited. No interval change in the hypoechoic ovoid nodule measuring 8 x 3 x 5 mm in the LEFT breast at 6:00, 1 cm from the nipple. Benign in appearance. No additional abnormality noted in the subareolar region. MM/[place] [id number] IMPRESSION: BI-RADS: 3-Probably Benign FOLLOW UP: 6 Month Follow-up Patient to return in 6 months for annual bilateral mammogram. LEFT breast ultra sound should also be performed of the indeterminate but probably benign nodule at 6:00 LEFT breast.
== END 2022-10-28 08:09 | disposition home or self-care (01) ==
PROVIDERS: PCP Family Medicine; Visit Provider Family Medicine
DX: R92.8 Other abnormal and inconclusive findings on diagnostic imaging of breast (principal)
CPT/HCPCS: 76642; 77061; G0279

== ENCOUNTER 2023-05-19 10:49 | Outpatient (CLI) | payer MEDICARE, OTHER, SELFPAY ==
--- NOTE | 2023-05-19 11:13 | MM_ITS ---
WS: [id number] DIAGNOSTIC LEFT DIGITAL TOMOSYNTHESIS MAMMOGRAPHY WITH CAD. LEFT breast ultrasound, limited. HISTORY: 6MFU COMPARISON: 10/28/2022, 04/11/2022 and 03/26/2021 Technique: CC, MLO and ML views. Spot compression LEFT CC and MLO. Breast composition: The breasts are extremely dense, which lowers the sensitivity of mammography. Ve ry dense breast tissue anteriorly and at a middle depth. No nipple retraction. Asymmetry in the infer ior LEFT breast seen on the MLO projection resolves with additional spot compression imaging. LEFT breast ultrasound, limited. Again noted is a hypoechoic well-circumscribed mass in the LEFT breast at 6:00 at the areolar. Mass m easures 9 x 3 x 6 mm with no increased vascularity. This may be a small fat lobule. Nevertheless very benign in appearance. MM/[place] [id number] IMPRESSION: BI-RADS: 3-Probably Benign FOLLOW UP: 6 Month Follow-up Patient to return in 6 months for annual mammogram. LEFT breast ultrasound luanne ld be performed at that time to document continued long-term stability of the n odule in the anterior LEFT breast.
== END 2023-05-19 10:50 | disposition home or self-care (01) ==
PROVIDERS: PCP Family Medicine; Visit Provider Family Medicine
DX: N63.25 Unspecified lump in the left breast, overlapping quadrants (principal)
CPT/HCPCS: 76642; 77062; G0279

== ENCOUNTER 2023-10-19 13:03 | Emergency (ER) | payer MEDICARE, OTHER, SELFPAY ==
[2023-10-19 13:09] VITALS: BP 148/85; PULSE 87; RESP 16; TEMP 36.6; O2SAT 98; BMI 37.0
--- NOTE | 2023-10-19 13:32 | XRR_ITS ---
PROCEDURE INFORMATION: Exam: XR Right Wrist Exam date and time: 10/19/2023 1:35 PM Age: 68 years old Clinical indication: Injury or trauma; Fall; Blunt trauma (contusions or hematomas); Wrist; Right; Additional info: Fall pain TECHNIQUE: Imaging protocol: Radiologic exam of the right wrist. Views: 3 or more views. COMPARISON: CR (UP EXM, ) 10/19/2023 1:35 PM FINDINGS: Bones/joints: There is a comminuted mildly displaced intra-articular fracture of the distal radius with no significant angulation. Soft tissues: There is associated soft tissue swelling. XR/XR wrist RT min 3V* [id number] IMPRESSION: Distal radial fracture.
--- NOTE | 2023-10-19 13:32 | XRR_ITS ---
PROCEDURE INFORMATION: Exam: XR Right Hand Exam date and time: 10/19/2023 1:35 PM Age: 68 years old Clinical indication: Injury or trauma; Fall; Blunt trauma (contusions or hematomas); Hand; Right; Additional info: Fall pain TECHNIQUE: Imaging protocol: Radiologic exam of the right hand. Views: 3 or more views. COMPARISON: CR (UP EXM, ) 10/19/2023 1:35 PM FINDINGS: Bones/joints: Other than the distal radial fracture described in the right wrist report, the right hand is normal. Soft tissues: Soft tissue swelling in the wrist. XR/XR hand RT min 3V* [id number] IMPRESSION: As above.
--- NOTE | 2023-10-19 13:35 | W.ED.EXTPRO ---
HPI - Extremity Problem General: Chief complaint: Extremity Injury, Upper Stated complaint: right arm and hand injury Time Seen by Provider: 10/19/23 13:16 History of Present Illness: There Cammy is a [id number] 68-year-old female that had a trip and fall landing on outstretched hand. She complains of right hand and right wrist pain. Onset this morning. She denies striking her head or loss of consciousness. Patient denies any prior fracture. 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 Her other and history includes GERD, hyperlipidemia, hypertension. Her primary care provider is Dr. Solorzano. She also sees a screen tender and clinic physician director in [place] at [facility] Patient is neurovascularly intact and has no open wounds Review of Systems General: Reports: 10 or more systems reviewed and unremarkable except in HPI and below PFSH ED PFSH: Medical History (Updated 10/19/23 @ 15:00 by FAISAL Rodrigues) Degenerative arthritis of knee Hypertension GERD (gastroesophageal reflux disease) Surgical History History of arthroscopic knee surgery Social History Smoking and tobacco/nicotine status: former use of tobacco/nicotine Alcohol intake: never Substance/Drug Use: never Physical Exam Narrative: EXAM NARRATIVE: No acute distress Atraumatic head and neck. Nontender to palpation over the neck Nonlabored breathing Peripheral pulses present and equal Patient is pink warm and dry Abdomen soft nontender Has tenderness to palpation over the distal forearm/wrist and hand Full active range of motion of other extremities. Patient is able to extend wrist, give thumbs up, make an okay sign, cross fingers, abduct fingers and make a fist Sensation intact light touch at radial, median, ulnar nerve distribution Course Vital Signs: Vital signs: Vital Signs Temperature 98 F 10/19/23 13:09 Pulse Rate 76 10/19/23 13:36 Respiratory Rate 15 10/19/23 13:36 Blood Pressure 128/76 10/19/23 13:36 Pulse Oximetry 97 10/19/23 13:36 Oxygen Delivery Me thod Room Air 10/19/23 13:36 MDM - Extremity (Nontraumatic) Medical Decision Making Patient was evaluated in the emergency department today for right wrist pain after a ground-level fall in which she landed on outstretched hand. She underwent XR imaging of the right wrist and hand. The right wrist x-ray reveals a nondisplaced distal radius fracture. Patient had no other fractures identified in the hand x-ray Patient was placed in a sugar-tong splint. Case management was consulted for orthopedic referral. She and I talked about osteoporosis. While previously it appears she was diagnosed with osteopenia now that she has had a fracture from a ground-level fall this would recategorize her into the osteoporosis group. She does have an clinic physician director for parathyroid hormone disorder. I have advised her to follow-up with that provider to further discuss osteopenia/osteoporosis management. She is agreeable. All questions answered Lab Data Radiology Impressions Hand X-Ray 10/19/23 13:32 IMPRESSION: As above. Wrist X-Ray 10/19/23 13:32 IMPRESSION: Distal radial fracture. All radiology interpretation(s) finalized by discharge Discharge Plan Discharge Patient Disposition: Home Clinical Impression: Distal radius fracture, right, Osteoporosis Condition: Stable Prescriptions: No Action lovastatin 40 mg tablet 40 mg PO DAILY esomeprazole magnesium [Nexium] 20 mg capsule,delayed release(DR/EC) 40 mg PO DAILY lisinopril-hydrochlorothiazide 20-25 mg Tablet 1 tab PO DAILY dicyclomine 20 mg tablet 20 mg PO BID Glucosamine 1 tab PO DAILY Vitamin C 1 tab PO DAILY Vitamin D3 1 tab PO DAILY black cohosh 1 tab PO DAILY flaxseed oil 1 tab PO DAILY vitamin A 1 tab PO DAILY zinc 1 tab PO DAILY Discharge Orders: Discharge ED (Routine); Ordered 10/19/23 Ordered By: Linh Melvin Referrals: Elsy Alcantara MD [Primary Care Provider] - Discharge Diet: Advance as tolerated Discharge Activity: Resume usual activity Patient Instructions: Wrist Fracture in Adults (ED), Pain Management, Osteoporosis Activity Restrictions/Additional Instructions: Here to remain nonweightbearing with the right arm. This means no lifting pushing or pulling Keep your splint clean and dry Rest, ice, compression, elevation along with nonsteroidal anti-inflammatory drugs and Tylenol for pain. Short course of [place]?hydrocodone and Tylenol?was given to you to help with severe pain. Orthopedic referral has been made. Case management will reach out to this week to discuss next steps Do not forget to reach out to your clinic physician director to further discuss your fracture and any indicated osteoporosis management Please return to the emergency department for new concerning or worsening symptoms Coding Level of Care Code ED Rn Triage for Beatriz Chen
[2023-10-19 13:36] VITALS: BP 128/76; PULSE 76; RESP 15; O2SAT 97
[2023-10-19 15:06] VITALS: BP 136/75; PULSE 76; RESP 15; O2SAT 97
--- NOTE | 2023-10-20 07:21 | DCPLANNER ---
Message was sent on 10/20 at 0721 to ortho. Clinic to contact patient
== END 2023-10-19 15:10 | disposition home or self-care (01) ==
PROVIDERS: Emergency Provider Nurse Practitioner; PCP Family Medicine
DX: S52.501A Unspecified fracture of the lower end of right radius, initial encounter for closed fracture (principal); M81.0 Age-related osteoporosis without current pathological fracture; I10 Essential (primary) hypertension; Z87.891 Personal history of nicotine dependence; W01.0XXA Fall on same level from slipping, tripping and stumbling without subsequent striking against object, initial encounter
CPT/HCPCS: 29125; 73100; 73110; 73130; 99283

== ENCOUNTER 2023-10-23 06:00 | Outpatient (CLI) | payer MEDICARE, OTHER, SELFPAY | END 2023-10-23 06:01 | LOC: SOT 10-27 12:12 | PROVIDERS: PCP Family Medicine; Visit Provider Student in an Organized Health Care Education/Training Program | DX: Z46.89 Encounter for fitting and adjustment of other specified devices (principal); S52.501D Unspecified fracture of the lower end of right radius, subsequent encounter for closed fracture with routine healing; X58.XXXD Exposure to other specified factors, subsequent encounter | CPT/HCPCS: 25600; 99204; L3984 ==

== ENCOUNTER → 2023-10-23 10:09 | Outpatient (BNVA) | payer MEDICARE, OTHER, SELFPAY | PROVIDERS: PCP Family Medicine; Visit Provider Student in an Organized Health Care Education/Training Program | DX: S52.501A Unspecified fracture of the lower end of right radius, initial encounter for closed fracture (principal); W01.0XXA Fall on same level from slipping, tripping and stumbling without subsequent striking against object, initial encounter; Z46.89 Encounter for fitting and adjustment of other specified devices; S52.501D Unspecified fracture of the lower end of right radius, subsequent encounter for closed fracture with routine healing; X58.XXXD Exposure to other specified factors, subsequent encounter | CPT/HCPCS: 25600; 73110; 99204; L3984 ==

== ENCOUNTER → 2023-11-03 14:19 | Outpatient (BNVA) | payer MEDICARE, OTHER, SELFPAY | PROVIDERS: PCP Family Medicine; Visit Provider Student in an Organized Health Care Education/Training Program | DX: S52.501A Unspecified fracture of the lower end of right radius, initial encounter for closed fracture (principal); X58.XXXA Exposure to other specified factors, initial encounter | CPT/HCPCS: 73110; 99213 ==

== ENCOUNTER → 2023-11-13 09:24 | Outpatient (BNVA) | payer MEDICARE, OTHER, SELFPAY | PROVIDERS: PCP Family Medicine; Visit Provider Student in an Organized Health Care Education/Training Program | DX: S52.501A Unspecified fracture of the lower end of right radius, initial encounter for closed fracture; X58.XXXA Exposure to other specified factors, initial encounter | CPT/HCPCS: 73110; 99213 ==

== ENCOUNTER → 2023-11-24 10:29 | Outpatient (BNVA) | payer MEDICARE, OTHER, SELFPAY | PROVIDERS: PCP Family Medicine; Visit Provider Physician Assistant | DX: S52.501A Unspecified fracture of the lower end of right radius, initial encounter for closed fracture (principal); X58.XXXA Exposure to other specified factors, initial encounter | CPT/HCPCS: 73110; 99213 ==

== ENCOUNTER → 2023-12-08 11:30 | Outpatient (BNVA) | payer MEDICARE, OTHER, SELFPAY | PROVIDERS: PCP Family Medicine; Visit Provider Physician Assistant | DX: S52.501D Unspecified fracture of the lower end of right radius, subsequent encounter for closed fracture with routine healing; X58.XXXD Exposure to other specified factors, subsequent encounter; Z46.89 Encounter for fitting and adjustment of other specified devices | CPT/HCPCS: 73110; 97760; 99213; L3908 ==

== ENCOUNTER 2023-12-08 13:24 | Outpatient (CLI) | payer MEDICARE, OTHER, SELFPAY | END 2023-12-08 13:25 | disposition home or self-care (01) | LOC: SPT 13:25 | PROVIDERS: PCP Family Medicine; Visit Provider Physician Assistant | DX: Z46.89 Encounter for fitting and adjustment of other specified devices (principal); S52.501D Unspecified fracture of the lower end of right radius, subsequent encounter for closed fracture with routine healing; X58.XXXD Exposure to other specified factors, subsequent encounter | CPT/HCPCS: 97760; 99213; L3908 ==

== ENCOUNTER 2023-12-15 08:25 | Outpatient (RCR) | payer OTHER, MEDICARE, SELFPAY | END 2023-12-17 23:59 | disposition home or self-care (01) | LOC: SOT 08:25 | PROVIDERS: PCP Family Medicine; Visit Provider Physician Assistant | DX: S52.501D Unspecified fracture of the lower end of right radius, subsequent encounter for closed fracture with routine healing (principal); X58.XXXD Exposure to other specified factors, subsequent encounter | CPT/HCPCS: 97022; 97110; 97165; 97530 ==

== ENCOUNTER 2023-12-18 06:00 | Outpatient (RCR) | payer OTHER, MEDICARE, SELFPAY | END 2024-01-17 23:59 | disposition home or self-care (01) | LOC: SOT 06:00 | PROVIDERS: PCP Family Medicine; Visit Provider Physician Assistant | DX: S52.501D Unspecified fracture of the lower end of right radius, subsequent encounter for closed fracture with routine healing (principal); X58.XXXD Exposure to other specified factors, subsequent encounter | CPT/HCPCS: 97022; 97110; 97140 ==

== ENCOUNTER 2024-01-18 06:00 | Outpatient (RCR) | payer OTHER, MEDICARE, SELFPAY | END 2024-02-16 23:59 | disposition home or self-care (01) | LOC: SOT 06:00 | PROVIDERS: PCP Family Medicine; Visit Provider Physician Assistant | DX: S52.501D Unspecified fracture of the lower end of right radius, subsequent encounter for closed fracture with routine healing (principal); X58.XXXD Exposure to other specified factors, subsequent encounter | CPT/HCPCS: 97022; 97110; 97140 ==

== ENCOUNTER → 2024-01-19 10:42 | Outpatient (BNVA) | payer OTHER, MEDICARE, SELFPAY | PROVIDERS: PCP Family Medicine; Visit Provider Physician Assistant | DX: S52.501D Unspecified fracture of the lower end of right radius, subsequent encounter for closed fracture with routine healing; X58.XXXD Exposure to other specified factors, subsequent encounter | CPT/HCPCS: 73110 ==

== ENCOUNTER 2024-05-24 08:41 | Outpatient (CLI) | payer OTHER, MEDICARE, SELFPAY ==
--- NOTE | 2024-05-24 08:50 | MM_ITS ---
WS: [id number] DIAGNOSTIC BILATERAL DIGITAL BREAST TOMOSYNTHESIS MAMMOGRAPHY WITH CAD LEFT breast ultrasound, limited HISTORY: Follow-up LEFT breast nodule. COMPARISON: 05/19/2023, 10/28/2022, 03/23/2020 and 12/31/2018 TECHNIQUE: Bilateral craniocaudad, mediolateral oblique, and mediolateral views are submitted with to mosynthesis and SM. Spot compression LEFT CC and MLO. Computer aided detection utilized. Breast composition: The breasts are heterogeneously dense, which may obscure small masses. Dense fibr oglandular tissue. The discrete nodule in the LEFT breast seen by ultrasound is not definitely identi fiable by mammography. This is due to the very dense fibroglandular tissue. There is no distortion. LEFT breast ultrasound, limited. Reidentified is the hypoechoic ovoid nodule in the LEFT breast at 6:00, 1 cm from the nipple measurin g 0.6 x 0.8 x 0.3 cm which has been previously described. No increase in size. MM/[place] [id number] IMPRESSION: BI-RADS: 2-Benign FOLLOW UP: 1 Year Follow-up Return to annual screening mammography.
--- NOTE | 2024-05-24 10:00 | US_ITS ---
WS: [id number] DIAGNOSTIC BILATERAL DIGITAL BREAST TOMOSYNTHESIS MAMMOGRAPHY WITH CAD LEFT breast ultrasound, limited HISTORY: Follow-up LEFT breast nodule. COMPARISON: 05/19/2023, 10/28/2022, 03/23/2020 and 12/31/2018 TECHNIQUE: Bilateral craniocaudad, mediolateral oblique, and mediolateral views are submitted with to mosynthesis and SM. Spot compression LEFT CC and MLO. Computer aided detection utilized. Breast composition: The breasts are heterogeneously dense, which may obscure small masses. Dense fibr oglandular tissue. The discrete nodule in the LEFT breast seen by ultrasound is not definitely identi fiable by mammography. This is due to the very dense fibroglandular tissue. There is no distortion. LEFT breast ultrasound, limited. Reidentified is the hypoechoic ovoid nodule in the LEFT breast at 6:00, 1 cm from the nipple measurin g 0.6 x 0.8 x 0.3 cm which has been previously described. No increase in size. US/US breast LT limited* [id number] IMPRESSION: BI-RADS: 2-Benign FOLLOW UP: 1 Year Follow-up Return to annual screening mammography.
== END 2024-05-24 08:42 | disposition home or self-care (01) ==
PROVIDERS: PCP Family Medicine; Visit Provider Family Medicine
DX: N63.23 Unspecified lump in the left breast, lower outer quadrant (principal); R92.8 Other abnormal and inconclusive findings on diagnostic imaging of breast
CPT/HCPCS: 76642; 77062; G0279

== ENCOUNTER 2024-08-16 13:12 | Outpatient (CLI) | payer MEDICARE, OTHER, SELFPAY ==
--- NOTE | 2024-08-16 13:16 | XR_ITS ---
WS: [id number] DEXA (DUAL ENERGY X-RAY ABSORPTIOMETRY) Bone mineral density was performed using a [employer] machine. HISTORY: POSTMENOPAUSAL COMPARISON: 08/08/2022 Lumbar spine BMD (L1-L4): 1.266 T score: 0.6 Z score: 1.5 Total hip BMD: Left: 0.938 g/cm2. T score: -0.6 Z score: 0.4 Right: 0.930 g/cm2. T score: -0.6 Z score: 0.3 10 year probability of a major osteoporotic fracture is 14.9%. Compared to the prior study from 08/08/2022. Lumbar spine bone mineral density has increased by 4.2%. Bilateral hips bone mineral density has increased by 0.2%. XR/XR DEXA axial skeleton* 54541 IMPRESSION: NORMAL BONE MINERAL DENSITY Based upon the WHO classification for females. Significant increase in bone mineral density within the lumbar spine since the prior study.
== END 2024-08-16 13:13 | disposition home or self-care (01) ==
LOC: RAD 13:13
PROVIDERS: PCP Family Medicine; Visit Provider Family Medicine
DX: Z13.820 Encounter for screening for osteoporosis (principal); Z78.0 Asymptomatic menopausal state
CPT/HCPCS: 77080

== ENCOUNTER → 2025-01-17 09:09 | Outpatient (BNVA) | payer MEDICARE, OTHER, SELFPAY | PROVIDERS: PCP Family Medicine; Referring Provider Family Medicine; Visit Provider Surgery | DX: Z12.11 Encounter for screening for malignant neoplasm of colon (principal) | CPT/HCPCS: 99024; 99204 ==

== ENCOUNTER 2025-02-15 06:39 | Day surgery (SDC) | payer MEDICARE, OTHER, SELFPAY ==
--- NOTE | 2025-02-15 06:01 | P.HPUD_ITS ---
Surgery/Procedure H&P Update DATE OF PROCEDURE: February 15, 2025 DATE H&P PERFORMED: 01/17/25 H&P UPDATE INFORMATION: I have reviewed H&P completed within last 30 days, I have examined patient prior to procedure, No changes to prior documentation, H&P is in [facility] EMR on date indicated and Risks and benefits of the procedure reviewed PLANNED PROCEDURE: Operation Date: 02/15/25 07:40 Proposed Procedures p Colonoscopy [id number] G0121 Z12.11(Not Applicable) - Nazario Natarajan MD
[2025-02-15] MEDS: sodium chloride 0.9% 1,000 ML 15 ML IV (06:47)
[2025-02-15 06:52] VITALS: BP 130/92; PULSE 98; RESP 18; TEMP 36.6; O2SAT 94; BMI 5202.2
--- NOTE | 2025-02-15 07:18 | ANES.PREANE2 ---
Pre-Anesthetic Assessment Height/Weight: Height 12.7 cm Weight 83.915 kg Temp Pulse Resp BP Pulse Ox O2 Del Method 97.8 F 98 18 130/92 94 Room Air 02/15/25 06:52 02/15/25 06:52 02/15/25 06:52 02/15/25 06:52 02/15/25 06:52 02/15/25 06:52 Preop Diagnosis: screening Operation Date: 02/15/25 07:40 Proposed Procedures p Colonoscopy [id number] G0121 Z12.11(Not Applicable) - Nazaroi Natarajan MD Familial anesthetic complications: None Was Beta Donna taken within 24 hours: N/A Was Clonidine taken within 24 hours: N/A Last intake: Intake Last Liquid Date 02/14/25 Last Liquid Time 23:30 Last Solid Date 02/13/25 Last Solid Time 18:30 Social No alcohol and No tobacco Exam alert, oriented x 3, clear to auscultation bilaterally and regular rate & rhythm Airway Mallampati: Class II Dentition: other (bridge) CV/HEM Hypertension GI Gastroesophageal Reflux Disease Metabolic Hyperlipidemia Anesthetic Plan ASA status: 2 Anesthesia: MAC Risk of > 500 ml blood loss (7ml/kg in children): No Medications/Allergies Home Medications ?Medication ?Instructions ?Recorded ?Confirmed ?Last Taken ?Type esomeprazole magnesium 20 mg 40 mg PO DAILY 12/21/19 02/13/25 02/14/25 18:00 History capsule,delayed release (Nexium) lovastatin 40 mg tablet 40 mg PO DAILY 12/21/19 02/13/25 02/12/25 History lisinopril 20 1 tab PO DAILY 04/09/20 02/13/25 02/14/25 18:00 History mg-hydrochlorothiazide 25 mg tablet Glucosamine 1 tab PO DAILY 04/20/21 02/13/25 02/13/25 History Vitamin C 1 tab PO DAILY 04/20/21 02/13/25 02/13/25 History Vitamin D3 1 tab PO DAILY 04/20/21 02/13/25 02/13/25 History black cohosh 1 tab PO DAILY 04/20/21 02/13/25 02/13/25 History dicyclomine 20 mg tablet 20 mg PO QID PRN Pain 04/20/21 02/13/25 02/14/25 18:00 History flaxseed oil 1 tab PO DAILY 04/20/21 02/13/25 02/13/25 History vitamin A 1 tab PO DAILY 04/20/21 02/13/25 02/13/25 History zinc 1 tab PO DAILY 04/20/21 02/13/25 02/13/25 History Fast Form right wrist #1 ea 10/23/23 01/17/25 Unknown Rx RIGHT VELCRO WRIST BRACE #1 ea 12/08/23 01/17/25 02/14/25 18:00 Rx alendronate 70 mg tablet 70 mg PO .WEEKLY 01/17/25 02/13/25 02/14/25 18:00 History Allergies Allergy/AdvReac Type Severity Reaction Status Date / Time No Known Allergies Allergy Verified 02/15/25 06:48 Current Medications Generic Name Dose Route Start Last Admin Trade Name Freq PRN Reason Stop Dose Admin Sodium Chloride 1,000 mls @ 15 mls/hr 02/14/25 10:42 02/15/25 06:47 Sodium Chloride 0.9% IV 02/15/25 10:41 15 mls/hr .Q24H PRN Administration COLONOSCOPY FLUIDS PFSH Anesthesia Medical History Degenerative arthritis of knee Hypertension GERD (gastroesophageal reflux disease) Surgical History History of arthroscopic knee surgery Social History Smoking and tobacco/nicotine status: tobacco/nicotine user, details unknown Alcohol intake: never Substance/Drug Use: never
[2025-02-15 08:03] VITALS: BP 93/62; PULSE 78; RESP 12; TEMP 36.3; O2SAT 99
[2025-02-15 08:27] VITALS: BP 111/62; PULSE 80; RESP 16; O2SAT 98
--- NOTE | 2025-02-15 08:30 | ANE.PACU2 ---
Inpatient post-anesthesia follow up: Airway intact: Yes Vital signs: Temperature 97.3 F Pulse Rate 80 Respiratory Rate 16 Blood Pressure 111/62 Pulse Oximetry 98 Oxygen Delivery Me thod Room Air Oxygen Flow Rate Fraction of Inspir ed Oxygen Hydration adequate: Yes Nausea and vomiting: No Pain level: 1 Mental status: Baseline
== END 2025-02-15 08:33 | disposition home or self-care (01) ==
PROVIDERS: PCP Family Medicine; Visit Provider Surgery
PROC: 0DJD8ZZ Inspection of Lower Intestinal Tract, Via Natural or Artificial Opening Endoscopic (ICD-10-PCS; CPT 45378; principal; 2025-02-15 07:40)
DX: Z12.11 Encounter for screening for malignant neoplasm of colon (principal); K62.1 Rectal polyp; K57.30 Diverticulosis of large intestine without perforation or abscess without bleeding; K64.8 Other hemorrhoids; I10 Essential (primary) hypertension; K21.9 Gastro-esophageal reflux disease without esophagitis; E78.5 Hyperlipidemia, unspecified; Z79.899 Other long term (current) drug therapy
CPT/HCPCS: 45380; 88305; J2704; J7030

== ENCOUNTER → 2025-02-28 09:18 | Outpatient (BNVA) | payer MEDICARE, OTHER, SELFPAY | PROVIDERS: PCP Family Medicine; Visit Provider Surgery | DX: Z09 Encounter for follow-up examination after completed treatment for conditions other than malignant neoplasm (principal) | CPT/HCPCS: 99213 ==

== ENCOUNTER 2025-07-13 08:19 | Outpatient (CLI) | payer MEDICARE, OTHER, SELFPAY ==
--- NOTE | 2025-07-13 08:24 | MM_ITS ---
WS: [id number] BILATERAL SCREENING DIGITAL TOMOSYNTHESIS MAMMOGRAM WITH CAD HISTORY: ANNUAL SCREENING COMPARISON: 05/19/2023, 04/11/2022, 05/24/2024 Bilateral CC and MLO views with tomosynthesis and synthetic mammography submitted. Computer aided detection analyzed. Breast composition: The breasts are heterogeneously dense, which may obscure small masses. No suspicious masses, microcalcifications or architectural distortion. Stable asymmetries in each breast. There are a few benign calcifications also identified. MM/MM scr tomosynthesis [id number] IMPRESSION: BI-RADS: 2 - Benign FOLLOW UP: 1 Year Follow-up
== END 2025-07-13 08:20 | disposition home or self-care (01) ==
LOC: RAD 08:20
PROVIDERS: PCP Family Medicine; Visit Provider Nurse Practitioner Family
DX: Z12.31 Encounter for screening mammogram for malignant neoplasm of breast (principal); R92.333 Mammographic heterogeneous density, bilateral breasts; N64.89 Other specified disorders of breast; R92.1 Mammographic calcification found on diagnostic imaging of breast
CPT/HCPCS: 77063; 77067